=== PATIENT | male | born 1980 | race African-American/Black ===

== ENCOUNTER 2020-06-24 01:48 | Inpatient (IN) | payer OTHER ==
[~2020-06-24] VITALS: Ht 182.9 cm; Wt 81.6 kg
--- NOTE | 2020-06-24 01:59 | NUR ---
DR. RUIZ AT BEDSIDE FOR MSE.
[2020-06-24] MEDS ORDERED: LIDOCAINE VISCUS 2% 15 ML UDC ONE (02:13)
[2020-06-24] MEDS ORDERED: MAG HYDROX/AL HYDROX/SIMETH 30 ML LIQUID UDC ONE (02:13)
[2020-06-24] MEDS ORDERED: FAMOTIDINE. 20 MG/2 ML VIAL IV ONE ×2 (02:13→02:15)
[2020-06-24] MEDS ORDERED: ONDANSETRON 4 MG/2 ML VIAL ONE (02:13)
[2020-06-24] MEDS ORDERED: DICYCLOMINE HCL LIQ 10 MG/5 ML UDC ONE (02:13)
[2020-06-24] MEDS ORDERED: IV NS 1000 ML 1,000 ML IV ONE (02:15)
[2020-06-24] MEDS ORDERED: ONDANSETRON 4 MG/2 ML VIAL IV ONE (02:15)
[2020-06-24] MEDS ORDERED: LIDOCAINE VISCUS 2% 15 ML UDC MM ONE (02:15)
[2020-06-24] MEDS ORDERED: DICYCLOMINE HCL LIQ 10 MG/5 ML UDC PO ONE (02:15)
[2020-06-24] MEDS ORDERED: MAG HYDROX/AL HYDROX/SIMETH 30 ML LIQUID UDC PO ONE (02:15)
[2020-06-24 02:17] LABS: BASOPHILS # (AUTO) 0.1 K/uL (0.0-8.0); BASOPHILS % (AUTO) 0.6 % (0.0-2.0); HEMATOCRIT 41.6 % (36.7-47.1); LYMPHOCYTES # (AUTO) 1.6 K/uL (20.0-40.0); LYMPHOCYTES % (AUTO) 18.1 % (20.5-51.5); MEAN CORPUSCULAR HEMOGLOBIN 27.1 uug (23.8-33.4); MEAN CORPUSCULAR HGB CONC 34 g/dL (32.5-36.3); MEAN CORPUSCULAR VOLUME 80.8 fL (73.0-96.2); MONOCYTES # (AUTO) 0.6 K/uL (2.0-10.0); MONOCYTES % (AUTO) 6.7 % (0.0-11.0); NEUTROPHILS # (AUTO) 6.7 K/uL (1.8-8.9); NEUTROPHILS % (AUTO) 74.6 % (38.5-71.5); PLATELET COUNT (AUTO) 227 K/uL (152-348); RED BLOOD CELL COUNT(AUTO) 5.14 MIL/uL (4.06-5.63)
[2020-06-24 02:25] LABS: CREATININE 1.5 mg/dL (0.6-1.3); POTASSIUM 2.9 mmol/L (3.5-5.1)
[2020-06-24 02:31] LABS: BILIRUBIN,DIRECT 0.2 mg/dL (0.0-0.2); BILIRUBIN,TOTAL 0.5 mg/dL (0.2-1.0); TOTAL PROTEIN, SERUM 7.3 g/dL (6.4-8.2)
[2020-06-24] MEDS ORDERED: HYDROMORPHONE 1 MG/1 ML DISP.SYRIN IV ONE ×2 (02:45→04:45)
[2020-06-24] MEDS ORDERED: HYDROMORPHONE 1 MG/1 ML DISP.SYRIN ONE ×2 (02:45→04:45)
[2020-06-24] MEDS ORDERED: KETAMINE HCL 500 MG/10 ML INJ IV ONE (03:15)
[2020-06-24] MEDS ORDERED: KETAMINE HCL 500 MG/10 ML INJ ONE (03:20)
[2020-06-24] MEDS ORDERED: POTASSIUM CHLORIDE 10 MEQ TAB.PRT.SR ONE (03:22)
[2020-06-24] MEDS ORDERED: POTASSIUM CHLORIDE 20 MEQ TAB.PRT.SR PO ONE (03:30)
--- NOTE | 2020-06-24 05:09 | NUR ---
YULIYA CALLED, [facility] DIRECTOR OF VOCATIONAL GUIDANCE ELEMENTARY ART TEACHER.
--- NOTE | 2020-06-24 05:14 | NUR ---
[facility] CHIEF FINANCIAL OFFICER SPEAKING WITH DR. RUIZ
[2020-06-24] MEDS ORDERED: Z GUARD REMEDY PASTE 57 GM TUBE TOP PRN (05:15)
[2020-06-24] MEDS ORDERED: MORPHINE SULFATE 2 MG/1 ML DISP.SYRIN IV PRN (05:15)
[2020-06-24] MEDS ORDERED: HYDROCODONE/APAP 5-325MG TABLET PO PRN (05:15)
[2020-06-24] MEDS ORDERED: MAGNESIUM HYDROXIDE 30 ML LIQUID UDC PO PRN (05:15)
[2020-06-24] MEDS ORDERED: ONDANSETRON 4 MG/2 ML VIAL IV PRN (05:15)
[2020-06-24] MEDS ORDERED: ACETAMINOPHEN 325 MG TABLET PO PRN (05:15)
[2020-06-24] MEDS ORDERED: IV 0.9% SODIUM CHLORID+ 20 KCL 1,000 ML IV ONE (05:30)
--- NOTE | 2020-06-24 06:02 | NUR ---
SPOKE TO [facility] SERVICE TEAM LEADER REGARDING ADMISSION ORDER TO ICU, WILL CHANGE ORDER TO MED-SURGE.
--- NOTE | 2020-06-24 06:14 | NUR ---
Pt. admitted to [facility] , under care of [facility] N.P. Belongs List completed.
--- NOTE | 2020-06-24 06:19 | NUR ---
received report from ER. waiting for patient to come to the floor.
--- NOTE | 2020-06-24 06:31 | NUR ---
patient received on floor from ER. refused to change to gown. no n/v at this time. v/s stable. no signs of acute distress. will provide report to oncoming morning nurse.
[2020-06-24 06:34] VITALS: BP 113/62
--- NOTE | 2020-06-24 06:36 | NUR ---
belongings list completed and placed in chart. ID band on. PIV intact and patent.
--- NOTE | 2020-06-24 07:30 | NUR ---
Received patient in bed awake, alert and oriented. Patient reports his pain to be a 6/10 which he says is a great improvement from when he came to the ER. He is resting comfortably talking and making jokes. There is no sign of respiratory distress at this time, patient is saturating well on room air. IV on the right AC 20 gauge hep lock. Patient is currently NPO. Safety precautions in place, bed in the lowest position and locked with call light and belongings within reach.
[2020-06-24] MEDS: PANTOPRAZOLE SODIUM 40 MG TABLET.DR PO SCH (08:09)
--- NOTE | 2020-06-24 08:15 | NUR ---
Patient asked for something to eat and drink, Hospitalist Irasema made aware. Order given by Irasema to add regular diet order. Diet added as ordered.
[2020-06-24 08:53] VITALS: BP 97/55
[2020-06-24] MEDS ORDERED: IV LACTATED RINGERS SOLUTION 1,000 ML IV ONE (09:30)
[2020-06-24] MEDS: DICYCLOMINE HCL 20 MG TABLET PO SCH ×2 (11:22→18:43)
[2020-06-24 16:15] VITALS: BP 107/68
--- NOTE | 2020-06-24 19:00 | NUR ---
PATIENT ALERT ORIENTED, NO COMPLAIN OF PAIN AT THIS TIME. PATIENT WANTING TO KNOW WHEN DR. LAM WILL COME IN. EXPLAINED TO PATIENT THAT DR. LAM AWARE OF THE CONSULT, AND MD HAS OWN SCHEDULED TO COME, WILL FOLLOW IN AM.
--- NOTE | 2020-06-24 19:04 | NUR ---
Patient is resting comfortably in bed, No sign of respiratory distress noted. Patient has not complained about pain at all on my shift he said it was at a 6 used repositioning and other interventions and was comfortable with that. IV intact and patent running lactated ringer. Patient was upset that he was told that he would see the GI doctor today and no one has come to see him yet. Safety precautions in place, bed in lowest position and locked with call light and belongings within reach. Will endorse to the oncoming nurse.
[2020-06-24 20:00] VITALS: BP 110/70
[2020-06-25] VITALS: BP 112/46
[2020-06-25] MEDS: DICYCLOMINE HCL 20 MG TABLET PO SCH ×4 (00:20→18:24)
[2020-06-25 04:00] VITALS: BP 100/57
[2020-06-25 06:18] LABS: BASOPHILS % (AUTO) 0.6 % (0.0-2.0); EOSINOPHILS % (AUTO) 0.1 % (0.0-7.0); HEMATOCRIT 39.6 % (36.7-47.1); HEMOGLOBIN 12.9 g/dL (12.5-16.3); LYMPHOCYTES # (AUTO) 1.7 K/uL (20.0-40.0); LYMPHOCYTES % (AUTO) 26.4 % (20.5-51.5); MEAN CORPUSCULAR HEMOGLOBIN 26.7 uug (23.8-33.4); MEAN CORPUSCULAR HGB CONC 33 g/dL (32.5-36.3); MEAN CORPUSCULAR VOLUME 81.9 fL (73.0-96.2); MONOCYTES # (AUTO) 0.5 K/uL (2.0-10.0); MONOCYTES % (AUTO) 8.5 % (0.0-11.0); NEUTROPHILS # (AUTO) 4.1 K/uL (1.8-8.9); NEUTROPHILS % (AUTO) 64.4 % (38.5-71.5); PLATELET COUNT (AUTO) 178 K/uL (152-348); RED BLOOD CELL COUNT(AUTO) 4.84 MIL/uL (4.06-5.63); WHITE BLOOD COUNT (AUTO) 6.3 K/uL (3.6-10.2)
[2020-06-25 06:25] LABS: BILIRUBIN,DIRECT 0.1 mg/dL (0.0-0.2); BILIRUBIN,TOTAL 0.7 mg/dL (0.2-1.0); CREATININE 1.3 mg/dL (0.6-1.3); PHOSPHOROUS 4.2 mg/dL (2.5-4.9); POTASSIUM 3.8 mmol/L (3.5-5.1); TOTAL PROTEIN, SERUM 5.8 g/dL (6.4-8.2)
[2020-06-25] MEDS: PANTOPRAZOLE SODIUM 40 MG TABLET.DR PO SCH (06:56)
--- NOTE | 2020-06-25 07:35 | NUR ---
PATIENT ALERT ORIENTED, NO SOB NO CHEST PAIN. PATIENT HAS ABDOMINAL DISCOMFORT, BUT DOES WANT PAIN MEDICATION. PATIENT MENTION HE DOESNT WANT TO EAT BECAUSE IT CAUSE ABDOMINAL PAIN. NOTIFY MADELINE TAYLOR REGARDING PATIENT CONCERN ABOUT WANTING TO KNOW THE IMAGING RESULTS, AND NOTIFY SHEILA BELL AM SHIFT TO FOLLOW UP WITH DR. LAM WHEN TO SEE THE PATIENT.
--- NOTE | 2020-06-25 08:00 | NUR ---
Received pt in awake AOx4, on RA with no SOB or distress noted at this time. No complaints of abdominal pain at this time. Left AC 20g flushed and patent. Been complaining about doctors not seeing him the whole day yesterday, informed pt will let Srini, the hospitalist know about questions and concerns. Bed locked in lowest position with [id number] up. Call light and phone within reach.
[2020-06-25] MEDS ORDERED: DIATR MEGLU/DIATRIZOATE SODIUM 30 ML BOTTLE ONE (09:45)
[2020-06-25 12:00] VITALS: BP 105/67
[2020-06-25 14:23] LABS: *BILIRUBIN,URIN NEGATIVE (NEGATIVE); *BLOOD, URINE NEGATIVE (NEGATIVE); *CLARITY,URINE CLEAR (CLEAR); *COLOR,URINE YELLOW (YELLOW); *KETONES,URINE NEGATIVE (NEGATIVE); *UROBILINOGEN,URINE 0.2 E.U./dl (NORMAL); LEUKOCYTE ESTERASE ,URINE NEGATIVE (NEGATIVE); NITRITE, URINE NEGATIVE (NEGATIVE); UGLUCOSE NEGATIVE (NEGATIVE)
[2020-06-25 14:43] LABS: *AMPHETAMINE, URINE NEGATIVE (NEGATIVE); *BARBITURATE, URINE NEGATIVE (NEGATIVE); *CANNABINOID, URINE POSITIVE (NEGATIVE); *COCCAINE, URINE NEGATIVE (NEGATIVE); *OPIATE, URINE NEGATIVE (NEGATIVE); *PHENCYCLIDINE SCREEN,URINE NEGATIVE (NEGATIVE)
--- NOTE | 2020-06-25 14:45 | NUR ---
Srini Villalpando ELECTROENCEPHALOGRAPH TECHNICIAN called to insert NGT for now awaiting XR small bowel through results and awaiting for Alda ELECTROENCEPHALOGRAPH TECHNICIAN to see pt. Inserted NGT but nothing is draining. Pt got upset and wanted it removed. Remove NGT. Pt tolerated well
[2020-06-25] MEDS ORDERED: MINERAL OIL FLEET ENEMA 133 ML BOTTLE RC ONE (16:00)
[2020-06-25 16:04] VITALS: BP 98/64
--- NOTE | 2020-06-25 17:14 | NUR ---
Pt has been complaining about hospital stay. Srini Villalpando WAITER/WAITRESS TOURIST CLASS and Alda WAITER/WAITRESS TOURIST CLASS surgery came in to talk and explain to patient about procedures and answered his questions and concerns
--- NOTE | 2020-06-25 18:56 | NUR ---
Pt left unit ambulatory with no SOB or distress noted at this time. Denied any pain. DC instructions and forms signed and given to pt, verbalized understanding. Prescription and CD imaging given to patient. All requested papers given. Belongings list signed and all accounted for. Signed request for medical records, placed in chart. IV on right AC 20g and ID band removed. Picked up by bg.
== END 2020-06-25 18:57 | disposition home or self-care (01) | DRG 391 ==
LOC: ER 01:56 → MEDSURG3 06:12
PROVIDERS: ADMIT Nurse Practitioner Acute Care; ATTEND Nurse Practitioner Acute Care
DX: K21.9 Gastro-esophageal reflux disease without esophagitis (principal); N17.0 Acute kidney failure with tubular necrosis; K29.70 Gastritis, unspecified, without bleeding; E87.6 Hypokalemia; F12.90 Cannabis use, unspecified, uncomplicated; E86.0 Dehydration; N28.1 Cyst of kidney, acquired; R74.0 Nonspecific elevation of levels of transaminase and lactic acid dehydrogenase [LDH]
CPT/HCPCS: 36415; 74250; 80307; 83690; 83735; 84100; 85025; A4663; G0378; J1170; J2405; J3490; J7030; J7120; Q9963

== ENCOUNTER 2020-08-31 12:19 | Emergency (ER) | payer OTHER ==
[~2020-08-31] VITALS: Ht 182.9 cm; Wt 81.6 kg
--- NOTE | 2020-08-31 12:28 | NUR ---
Dr Fenton at the bedside for MSE.
[2020-08-31] MEDS ORDERED: HYDROMORPHONE 1 MG/1 ML DISP.SYRIN IV ONE (12:30)
[2020-08-31] MEDS ORDERED: ONDANSETRON 4 MG/2 ML VIAL IV ONE (12:30)
[2020-08-31] MEDS ORDERED: PANTOPRAZOLE SODIUM 40 MG VIAL IV ONE (12:30)
[2020-08-31] MEDS ORDERED: IV NORMAL SALINE 1000 ML BAG IV ONE ×2 (12:30→13:15)
[2020-08-31] MEDS ORDERED: HYDROMORPHONE 2 MG/1 ML DISP.SYRIN ONE (12:41)
[2020-08-31] MEDS ORDERED: PANTOPRAZOLE SODIUM 40 MG VIAL ONE (12:41)
[2020-08-31] MEDS ORDERED: ONDANSETRON 4 MG/2 ML VIAL ONE (12:41)
[2020-08-31 12:44] LABS: BASOPHILS # (AUTO) 0.1 K/uL (0.0-8.0); BASOPHILS % (AUTO) 0.7 % (0.0-2.0); HEMATOCRIT 41.8 % (36.7-47.1); HEMOGLOBIN 13.9 g/dL (12.5-16.3); LYMPHOCYTES # (AUTO) 0.5 K/uL (20.0-40.0); LYMPHOCYTES % (AUTO) 6.3 % (20.5-51.5); MEAN CORPUSCULAR HGB CONC 33 g/dL (32.5-36.3); MEAN CORPUSCULAR VOLUME 80.9 fL (73.0-96.2); MONOCYTES # (AUTO) 0.3 K/uL (2.0-10.0); MONOCYTES % (AUTO) 4.5 % (0.0-11.0); NEUTROPHILS # (AUTO) 6.8 K/uL (1.8-8.9); NEUTROPHILS % (AUTO) 88.5 % (38.5-71.5); PLATELET COUNT (AUTO) 253 K/uL (152-348); RED BLOOD CELL COUNT(AUTO) 5.16 MIL/uL (4.06-5.63); WHITE BLOOD COUNT (AUTO) 7.7 K/uL (3.6-10.2)
[2020-08-31 12:57] LABS: BILIRUBIN,DIRECT 0.2 mg/dL (0.0-0.2); BILIRUBIN,TOTAL 0.5 mg/dL (0.2-1.0); CREATININE 1.3 mg/dL (0.6-1.3); POTASSIUM 3.7 mmol/L (3.5-5.1); TOTAL PROTEIN, SERUM 7.3 g/dL (6.4-8.2)
--- NOTE | 2020-08-31 14:21 | NUR ---
IV removed. Catheter intact and site benign. Pressure and 4x4 gauze applied to site. No bleeding noted.
[2020-08-31 14:22] VITALS: BP 110/71
--- NOTE | 2020-08-31 14:23 | NUR ---
Patient discharged to home in stable condition. Written and verbal after care instructions given. Patient verbalizes understanding of instructions. Stressed follow up or return to ER for worsening s/s.
== END 2020-08-31 14:24 | disposition home or self-care (01) ==
LOC: ER 12:19
DX: K21.9 Gastro-esophageal reflux disease without esophagitis (principal)
CPT/HCPCS: 36415; 80048; 80076; 83690; 85025; 96361; 96374; 96375; 99284; C9113; J1170; J2405; A4663; J7030